=== PATIENT | female | born 1930 | race American Indian/Alaskan Native ===

== ENCOUNTER 2016-11-27 10:28 | Emergency (ER) | payer MEDICARE ==
[2016-11-27 10:55] VITALS: PULSE 81; RESP 20; TEMP 98.5; O2SAT 98
--- NOTE | 2016-11-27 11:32 | ED PDOC ---
Arrival/HPI - General Chief Complaint: High Blood Pressure Time Seen by Provider: 11/27/16 11:05 Historian: Patient - History of Present Illness Narrative History of Present Illness (Text): 11/27/16 11:15 Angeles Sanchez is an 86 year old female, whose past medical history includes hypertension, who presents to the emergency department complaining of elevated blood pressure readings taken at home for the last few days. Patient states that she has been in compliance with her anti-hypertension medications. Patient has no other complaints, states that she feels well and is otherwise asymptomatic. Patient denies any nausea, vomiting, headache, chest pain, shortness of breath, dyspnea on exertion, or any other complaints at this time. PMD: Dr. Peralta Time/Duration: < week Symptom Onset: Gradual Symptom Course: Unchanged Activities at Onset: Rest Context: Home Past Medical History - Provider Review Nursing Documentation Reviewed: Yes - Infectious Disease Hx of Infectious Diseases: None - Reproductive Menopause: No - Cardiac Hx Hypertension: Yes - Psychiatric Hx Substance Use: No Family/Social History - Physician Review Nursing Documentation Reviewed: Yes Family/Social History: No Known Family HX Smoking Status: Never Smoked Hx Alcohol Use: No Hx Substance Use: No Allergies/Home Meds Allergies/Adverse Reactions: Allergies Penicillins Allergy (Verified 11/27/16 10:55) RASH Home Medications: Home Meds Medication Instructions Recorded Confirmed Aspirin [Adult Low Dose Aspirin EC] 11/27/16 Calcium Carbonate [Oscal] 500 11/27/16 Dipyridamole [Persantine] 11/27/16 Insulin Human NPH/Reg [HumuLIN 11/27/16 70/30 (NPH/Reg)] Losartan [Cozaar] 11/27/16 Timolol 0.5% Ophth [Timoptic 0.5% 11/27/16 Ophth Soln] Physical Exam - Physical Exam Narrative Physical Exam (Text): - Review of Systems Constitutional: absent: Fatigue, Weight Change, Fevers Eyes: Normal ENT: Normal Respiratory: Normal absent: SOB, Cough, Sputum Cardiovascular: Normal absent: Chest pain, Palpitations, Syncope Gastrointestinal: Normal absent: Abdominal pain, Diarrhea, Nausea, Vomiting Genitourinary: Normal. absent: Dysuria, Frequency, Hematuria Musculoskeletal: Normal. absent: Arthralgias, Back Pain, Neck Pain Skin: Normal Neurological: Normal absent: Focal Weakness Endocrine: Normal Hemo/Lymphatic: Normal Psychiatric: Normal - Physical exam Patient appears age appropriate, speaking full sentences without difficulty. - Systems Exam Head: Present: Atraumatic, Normocephalic Pupils: Present: PERRL Extraocular Muscles: Present: EOMI Conjunctiva: Present: Normal Mouth: Present: Moist Mucous Membranes Neck: Present: Normal Range of Motion. No: MIDLINE TENDERNESS, Paraspinal Tenderness Respiratory/Chest: Present: Clear to Auscultation, Good Air Exchange. No: Respiratory Distress, Accessory Muscle Use, Tachypnic Cardiovascular: Present: Regular Rate and Rhythm, Normal S1, S2, Peripheral Pulses Present. No: Murmurs Abdomen: Present: Normal Bowel Sounds, No: Tenderness, Peritoneal Signs, Rebound, Guarding, Distention Back: Present: Normal Inspection. No: Midline Tenderness, Paraspinal Tenderness Upper Extremity: Present: Normal Inspection. No: Cyanosis, Edema Lower Extremity: Present: Normal Inspection. No: Edema Neurological: Present: GCS=15, Speech Normal, cranial nerves II through XII fully intact with no cerebellar abnormality, neuro-sensory fully intact. No focal neurological deficits. Skin: Present: Warm, Dry, Normal Color. No: Rashes Lymphatic: Present: OX3, NI, NC Psychiatric: Present: Alert, Oriented x 3, Normal Insight, Normal Concentration Vital Signs Reviewed: Yes Vital Signs Temp Pulse Resp BP Pulse Ox 11/27/16 11:33 166/90 H 11/27/16 10:48 98.5 F 81 20 206/71 H 98 Temperature: Afebrile Blood Pressure: Hypertensive Pulse: Regular Respiratory Rate: Normal Appearance: Positive for: Well-Appearing, Non-Toxic, Comfortable Pain Distress: None Mental Status: Positive for: Alert and Oriented X 3 Medical Decision Making ED Course and Treatment: 11/27/16 11:15 Impression: 86 year old female presenting with asymptomatic hypertension with no acute findings on physical exam. Pt is well appearing and has no focal neurological deficits on examination Plan: -- recheck BP Progress Notes: 11/27/16 11:17 Patient has no complaints. Will recheck blood pressure and establish follow up with PMD. 11/27/16 11:30 Patient's BP is 166/90 and remains asymptomatic. Patient instructed to follow up with PMD outpatient. 11/27/16 11:[address] Peralta, agrees with fl home and outpatient f/u with Suma Garcia or Abhi Peralta spoke with pt's daughter on the phone, plan to f/u with Dr. Garcia this week Pt states she understands to return to the ER right away for new or worsening symptoms or for inability to f/u with PMD or specialist as instructed. Patient states that she fully agrees with and understands discharge instructions. States that she agrees with the plan and disposition. Verbalized and repeated discharge instructions and plan. I have given the patient opportunity to ask any additional questions. - Scribe Statement The provider has reviewed the documentation as recorded by the Scribe Meryl Chi Provider Scribe Attestation: All medical record entries made by the Scribe were at my direction and personally dictated by me. I have reviewed the chart and agree that the record accurately reflects my personal performance of the history, physical exam, medical decision making, and the department course for this patient. I have also personally directed, reviewed, and agree with the discharge instructions and disposition. Disposition/Present on Arrival - Present on Arrival Any Indicators Present on Arrival: No History of DVT/PE: No History of Uncontrolled Diabetes: No Urinary Catheter: No History of Decub. Ulcer: No History Surgical Site Infection Following: None - Disposition Have Diagnosis and Disposition been Completed?: Yes Diagnosis: Hypertension Disposition: HOME/ ROUTINE Disposition Time: 11:30 Patient Plan: Discharge Condition: GOOD Discharge Instructions (ExitCare): Hypertension (ED) Additional Instructions: PLEASE RETURN TO THE EMERGENCY DEPARTMENT FOR NEW OR WORSENING SYMPTOMS. RETURN RIGHT AWAY IF YOU CANNOT FOLLOW UP WITH YOUR PRIMARY CARE DOCTOR, CLINIC, OR SPECIALIST IN 1-2 DAYS. Referrals: Shanae Peralta MD [Primary Care Provider] - Follow up with primary Heather Garcia MD [Staff Provider] - Follow up with primary Ashwin Moe MD [Staff Provider] - Follow up with primary Forms: gestigon (Faroese)
[2016-11-27 11:33] VITALS: BP 166/90
== END 2016-11-27 12:09 | disposition home or self-care (01) ==
LOC: ED 10:28
DX: I10 Essential (primary) hypertension (principal)